=== PATIENT | female | born 1965 | race Caucasian/White ===

== ENCOUNTER 2016-12-06 03:54 | Emergency (ER) | payer SELFPAY ==
[2016-12-06 04:04] VITALS: BP 119/77; PULSE 77; RESP 16; TEMP 98.3; O2SAT 96
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
[2016-12-06 04:36] LABS: AUTOMATED NEUTROPHIL # 3.5 TH/MM3 (1.8-7.7); BASOPHIL # 0.1 TH/MM3 (0-0.2); BASOPHIL % 0.9 % (0.0-2.0); EOSINOPHIL # 0.2 TH/MM3 (0-0.4); EOSINOPHIL % 2.3 % (0.0-4.0); HEMATOCRIT 34.5 % (35.0-46.0); HEMO FLAGS DIFF FINAL; LYMPH % 40.4 % (9.0-44.0); LYMPHOCYTE # 2.8 TH/MM3 (1.0-4.8); MEAN CELL VOLUME 93.7 FL (80.0-100.0); MEAN CORPUSCULAR HEMOGLOBIN 32.6 PG (27.0-34.0); MEAN CORPUSCULAR HGB CONC 34.7 % (32.0-36.0); MONO % 5.9 % (0.0-8.0); NEUT % 50.5 % (16.0-70.0); PLATELET COUNT 264 TH/MM3 (150-450); RED BLOOD COUNT 3.68 MIL/MM3 (4.00-5.30); RED CELL DISTRIBUTION WIDTH 13.2 % (11.6-17.2)
[2016-12-06 05:17] LABS: ALKALINE PHOSPHATASE 178 U/L (45-117); TOTAL BILIRUBIN ADULT 0.2 MG/DL (0.2-1.0)
[2016-12-06 05:20] LABS: ALT (GPT) 80 U/L (10-53); ANION GAP 7 MEQ/L (5-15); AST (GOT) 91 U/L (15-37); BICARBONATE 25.8 MEQ/L (21.0-32.0); BLOOD UREA NITROGEN 17 MG/DL (7-18); CHLORIDE 107 MEQ/L (98-107); GLOMERULAR FILTRATION RATE 104 ML/MIN (>89); POTASSIUM 4.2 MEQ/L (3.5-5.1); SODIUM (NA) 140 MEQ/L (136-145)
[2016-12-06 05:23] LABS: ACETAMINOPHEN LESS THAN 2.0 MCG/ML (10.0-30.0)
[2016-12-06 05:28] LABS: AMPHETAMINE, URINE NEG (NEG); BARBITURATES, URINE NEG (NEG); COCAINE, URINE NEG (NEG)
[2016-12-06 06:17] VITALS: BP 110/52; PULSE 75; RESP 18; O2SAT 95
[2016-12-06 10:38] VITALS: BP 110/52; TEMP 97
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
== END 2016-12-06 11:47 | disposition home or self-care (01) ==
LOC: NEPD 03:54 → NEPJ 11:47
DX: F10.129 Alcohol abuse with intoxication, unspecified (principal); F43.25 Adjustment disorder with mixed disturbance of emotions and conduct; F39 Unspecified mood [affective] disorder; F17.210 Nicotine dependence, cigarettes, uncomplicated
CPT/HCPCS: 80053; 80307; 84703; 85025; 99285